=== PATIENT | female | born 1955 | race Caucasian/White ===

== ENCOUNTER → 2019-03-21 | Outpatient (CLI) | payer MEDICARE, BC | END | disposition home or self-care (01) | LOC: CFH 11:33 | PROVIDERS: ATTEND Internal Medicine Cardiovascular Disease | DX: I08.1 Rheumatic disorders of both mitral and tricuspid valves (principal); I10 Essential (primary) hypertension | CPT/HCPCS: 93306 ==

== ENCOUNTER → 2019-04-26 | Outpatient (CLI) | payer MEDICARE, BC | END | disposition home or self-care (01) | LOC: CFH 11:44 | PROVIDERS: ATTEND Internal Medicine Cardiovascular Disease | DX: I25.89 Other forms of chronic ischemic heart disease (principal); I10 Essential (primary) hypertension; I25.3 Aneurysm of heart; R07.9 Chest pain, unspecified; R06.02 Shortness of breath; R94.31 Abnormal electrocardiogram [ECG] [EKG] | CPT/HCPCS: 78452; 93017; A9502 ==

== ENCOUNTER 2019-05-12 10:53 | Observation (INO) | payer MEDICARE, BC ==
[~2019-05-12] VITALS: Ht 167.6 cm; Wt 77.3 kg
[2019-05-12] MEDS ORDERED: SODIUM CHLORIDE 0.9% 1,000 ML IV SCH (11:00)
[2019-05-12] MEDS ORDERED: TELM40TA7 PO (12:30)
[2019-05-12] MEDS ORDERED: PLEASE ENTER HEIGHT AND WEIGHT MC SCH (12:30)
[2019-05-12] MEDS ORDERED: PANT40TA5 PO (12:30)
[2019-05-12] MEDS ORDERED: DICL75TA3 PO (12:30)
[2019-05-12 12:51] LABS: BASOPHILS # (AUTO) 0.03 x10^3/uL (0-0.1); BASOPHILS % (AUTO) 1 % (0-1); EOSINOPHILS # (AUTO) 0.11 x10^3/uL (0-0.4); EOSINOPHILS % (AUTO) 2 % (1-7); LYMPHOCYTES # (AUTO) 1.67 x10^3/uL (1-3.4); LYMPHOCYTES % (AUTO) 29 % (22-44); MD NO; MEAN CORPUSCULAR HEMOGLOBIN 29.1 pg (27.0-34.8); MEAN CORPUSCULAR HGB CONC 33.1 g/dL (32.4-35.8); MEAN CORPUSCULAR VOLUME 87.8 fL (80-100); MEAN PLATELET VOLUME 8.9 fL (7.4-10.4); MONOCYTES # (AUTO) 0.55 x10^3/uL (0.2-0.8); MONOCYTES % (AUTO) 9 % (2-9); NEUTROPHILS # (AUTO) 3.45 x10^3/uL (1.8-6.8); NEUTROPHILS % (AUTO) 59 % (42-75); PLATELET COUNT 220 x10^3/uL (130-400); RED CELL DISTRIBUTION WIDTH 13.7 % (9.6-15.2)
[2019-05-12 12:52] VITALS: BP 178/73
[2019-05-12 13:00] LABS: ANION GAP 5 mmol/L (5-15); CALCIUM 9.2 mg/dL (8.5-10.1); CHLORIDE 109 mmol/L (98-107); CREATININE 0.74 mg/dL (0.55-1.02)
[2019-05-12] MEDS ORDERED: FENTANYL PF 100 MCG/2ML ONE (15:08)
[2019-05-12] MEDS ORDERED: MIDAZOLAM 1 MG/ML, 5ML ONE (15:08)
[2019-05-12] MEDS ORDERED: TICAGRELOR 90 MG TABLET ONE (15:08)
[2019-05-12] MEDS ORDERED: VERAPAMIL 2.5 MG/ML, 2ML ONE (15:08)
[2019-05-12] MEDS ORDERED: LIDOCAINE-MPF 1%, 5ML ONE (15:09)
[2019-05-12] MEDS ORDERED: HEPARIN 1,000 UNITS/ML, 10ML ONE (15:09)
[2019-05-12] MEDS ORDERED: BIVALIRUDIN 250 MG ONE ×2 (15:09→16:44)
[2019-05-12] MEDS ORDERED: PRASUGREL 10 MG TABLET ONE (16:26)
[2019-05-12] MEDS ORDERED: BIVALIRUDIN 250 MG in SODIUM CHLORIDE 0.9% 50 ML IV SCH (17:03)
[2019-05-12] MEDS: ASPIRIN 81 MG TABLET EC PO SCH (17:30)
[2019-05-12 20:05] VITALS: BP 121/70
[2019-05-12] MEDS ORDERED: ACETAMINOPHEN 325 MG TABLET PO PRN (21:30)
[2019-05-12] MEDS: DICLOFENAC SODIUM 75 MG TABLET.DR PO SCH ×2 (21:42→21:43)
[2019-05-12] MEDS ORDERED: NITROGLYCERIN 0.4 MG BOTTLE (25 TABS) SL PRN (22:00)
[2019-05-12] MEDS ORDERED: NITROGLYCERIN 0.4 MG/SPRAY SL PRN (22:00)
[2019-05-12] MEDS: SODIUM CHLORIDE 0.9% 1,000 ML IV SCH (22:48)
[2019-05-12] MEDS ORDERED: CALCIUM CARBONATE 500 MG TAB.CHEW PO PRN (23:00)
[2019-05-13 01:13] VITALS: BP 168/80
[2019-05-13 04:36] LABS: ANION GAP 5 mmol/L (5-15); CALCIUM 8.6 mg/dL (8.5-10.1); CHLORIDE 112 mmol/L (98-107); CREATININE 0.63 mg/dL (0.55-1.02)
[2019-05-13] MEDS: SODIUM CHLORIDE 0.9% 1,000 ML IV SCH (05:18)
[2019-05-13] MEDS: ASPIRIN 81 MG TABLET EC PO SCH (05:39)
[2019-05-13] MEDS ORDERED: TELMISARTAN 40 MG PO SCH (09:00)
[2019-05-13] MEDS: DICLOFENAC SODIUM 75 MG TABLET.DR PO SCH (09:00)
[2019-05-13] MEDS ORDERED: PRASUGREL 10 MG TABLET PO SCH (09:00)
[2019-05-13 09:40] VITALS: BP 154/72
[2019-05-13] MEDS ORDERED: PRAS10TA4 PO (10:07)
[2019-05-13] MEDS ORDERED: ASPI81TA45 PO (10:07)
[2019-05-14] MEDS ORDERED: PANTOPRAZOLE 40MG TABLET PO SCH (09:00)
== END 2019-05-13 13:59 | disposition home or self-care (01) ==
LOC: CACL 10:53 → 5SO 17:42 → DCLOUNGE 05-13 10:20 → CACL 05-13 13:41
PROVIDERS: ADMIT Internal Medicine Cardiovascular Disease; ATTEND Internal Medicine Cardiovascular Disease
DX: R94.39 Abnormal result of other cardiovascular function study (principal); I25.110 Atherosclerotic heart disease of native coronary artery with unstable angina pectoris; I10 Essential (primary) hypertension; E78.5 Hyperlipidemia, unspecified; E66.3 Overweight; Z68.28 Body mass index [BMI] 28.0-28.9, adult; Z79.899 Other long term (current) drug therapy; Z88.5 Allergy status to narcotic agent; Z88.8 Allergy status to other drugs, medicaments and biological substances; Z98.51 Tubal ligation status; Z98.890 Other specified postprocedural states; Z82.49 Family history of ischemic heart disease and other diseases of the circulatory system
CPT/HCPCS: 36415; 80048; 85025; 93005; 93458; 99156; 99157; C1725; C1769; C1874; C1887; C1894; C9600; G0378; J0583; J1644; J2250; J3010; J7030; Q9967